=== PATIENT | male | born 1990 | race Caucasian/White ===

== ENCOUNTER 2023-07-12 09:02 | Outpatient (REF) | payer OTHER, SELFPAY ==
--- NOTE | ~2023-07-12 | US_ITS ---
EXAMINATION: US EXTREMITY, NONVASCULAR CLINICAL INFORMATION: Palpable superficial nodule left anterior angel, question vascular versus cyst. Patient indicated an area of palpable area; however, unable to palpate any lump/skin thickening or mass COMPARISON: None available. TECHNIQUE: Targeted ultrasound images were obtained by the line leader of the area of concern as indicated by the patient in the left anterior angel Radiologist was not in attendance. Images were later provided for interpretation. FINDINGS: No discrete mass, fluid collection or abnormal superficial vascularity identified in the area of concern indicated by the patient in the superficial soft tissues of the anterior mid left angel. US/US extremity nonvascular IMPRESSION: 1. No discrete mass, fluid collection or abnormal superficial vascularity identified in the area of concern indicated by the patient in the superficial soft tissues of the anterior mid left angel. 2. Decisions regarding further imaging, treatment or biopsy should be based on the clinical exam, as not all abnormalities are detectable on ultrasound studies.
== END 2023-07-12 09:03 | disposition home or self-care (01) ==
LOC: HO.UMASIMG 09:02
PROVIDERS: Visit Provider Family Medicine
DX: R22.9 Localized swelling, mass and lump, unspecified (principal)
CPT/HCPCS: 76882

== ENCOUNTER 2023-08-02 06:27 | Outpatient (REF) | payer OTHER, SELFPAY ==
--- NOTE | ~2023-08-02 | US_ITS ---
EXAMINATION: US RETROPERITONEAL COMPLETE (RENAL) CLINICAL INFORMATION: Microhematuria. COMPARISON: None available. TECHNIQUE: Real-time imaging of the kidneys and bladder. FINDINGS: RIGHT KIDNEY: 9.7 x 3.9 x 4.8 cm (SAG x AP x TRV). The kidney is normal in size, contour, and echogenicity. Renal cortical thickness is normal. No calculi or focal parenchymal lesions. No hydronephrosis. LEFT KIDNEY: 11.3 x 6.3 x 4.6 cm (SAG x AP x TRV). The kidney is normal in size, contour, and echogenicity. Renal cortical thickness is normal. No calculi or focal parenchymal lesions. No hydronephrosis. BLADDER: Well distended and normal. Bilateral ureteral jets are demonstrated. Prevoid bladder volume is 176 mL. Postvoid bladder volume is 9.3 mL. US/US retroperitoneal comp IMPRESSION: Normal renal and bladder ultrasound.
== END 2023-08-02 06:28 | disposition home or self-care (01) ==
LOC: HO.UMASIMG 06:27
PROVIDERS: Visit Provider Family Medicine
DX: R31.29 Other microscopic hematuria (principal)
CPT/HCPCS: 76770